=== PATIENT | male | born 1985 | race Caucasian/White ===

== ENCOUNTER 2020-10-22 15:21 | Emergency (ER) | payer OTHER ==
[~2020-10-22] VITALS: Ht 177.8 cm; Wt 74.8 kg
--- NOTE | 2020-10-22 16:00 | NUR ---
Placed in room 6 . Placed on alarm security or surveillance monitor, blood pressure machine and pulse oximeter. To gown for exam. Side rails up. Report received from TEDDY Tabares.
[2020-10-22 16:01] VITALS: BP_SYST 141
--- NOTE | 2020-10-22 16:07 | NUR ---
BIB FROM HOME FOR DIZZINESS FOR 24 HOURS. DENIES FEVER/CHILLS/CP/SOB
--- NOTE | 2020-10-22 16:15 | NUR ---
ER DR. MELGAR AT THE BEDSIDE EVALUATING PT
[2020-10-22] MEDS ORDERED: MECLIZINE HCL 25 MG TABLET (ANITVERT) PO ONE (16:30)
--- NOTE | 2020-10-22 17:00 | NUR ---
PT ABLE TO AMBULATE [place]AM[place] AND FEELS RELIEF FROM DIZZINESS AFTER MEDICATION
[2020-10-22 17:15] VITALS: BP_SYST 137
--- NOTE | 2020-10-22 17:15 | NUR ---
Patient given written and verbal discharge instructions and verbalizes understanding. ER MD discussed with patient the results and treatment provided. Patient in stable condition. ID arm band removed. Rx of MECLIZINE given. Patient educated on pain management and to follow up with PMD. Pain Scale 0/10. Opportunity for questions provided and answered. Medication side effect fact sheet provided.
== END 2020-10-22 17:15 | disposition home or self-care (01) ==
LOC: SED 15:21
DX: R42 Dizziness and giddiness (principal)
CPT/HCPCS: 93005; 99283; J8597

== ENCOUNTER 2023-04-04 15:22 | Emergency (ER) | payer OTHER ==
[~2023-04-04] VITALS: Ht 177.8 cm; Wt 74.8 kg
[2023-04-04 15:25] VITALS: BP_SYST 127
--- NOTE | 2023-04-04 15:30 | NUR ---
Patient triaged and placed in waiting room. VSS and patient appears in no acute distress at this time. Accompanied by FAMILY, awaiting available bed, and MD notified of need for MSE.
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
--- NOTE | 2023-04-04 15:55 | NUR ---
DR HOSKINS OUT TO TRIAGE ROOM FOR EVALUATION
[2023-04-04] MEDS ORDERED: IBUPROFEN 800 MG TABLET PO ONE (16:00)
[2023-04-04] MEDS ORDERED: IBUP-1971 PO (17:31)
[2023-04-04] MEDS ORDERED: DICL20GE TP (17:31)
--- NOTE | 2023-04-04 17:47 | NUR ---
Patient given written and verbal discharge instructions and verbalizes understanding. ER MD discussed with patient the results and treatment provided. Patient in stable condition. ID arm band removed. Rx of DICLFENAC, IBUPROFEN given. Patient educated on pain management and to follow up with PMD. Pain Scale 0/10. Opportunity for questions provided and answered. Medication side effect fact sheet provided.
== END 2023-04-04 17:47 | disposition home or self-care (01) ==
LOC: SED 15:22
DX: S16.1XXA Strain of muscle, fascia and tendon at neck level, initial encounter (principal); S39.013A Strain of muscle, fascia and tendon of pelvis, initial encounter; Z79.899 Other long term (current) drug therapy; V89.2XXA Person injured in unspecified motor-vehicle accident, traffic, initial encounter; Y93.89 Activity, other specified; Y92.89 Other specified places as the place of occurrence of the external cause; Y99.8 Other external cause status
CPT/HCPCS: 72040-TC; 72100-TC; 73030; 96372; 99284

== ENCOUNTER 2023-04-11 14:08 | Emergency (ER) | payer OTHER ==
[~2023-04-11] VITALS: Ht 177.8 cm; Wt 77.1 kg
[~2023-04-11 14:08] MED LIST: DICL20GE TP; IBUP-1971 PO
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
[2023-04-11 14:24] VITALS: BP_SYST 140
[2023-04-11] MEDS ORDERED: MORPHINE 4 MG INJ. 4 MG/ML VIAL IM ONE (14:30)
--- NOTE | 2023-04-11 14:36 | NUR ---
Pt bib self from home. chief complaint Neck pain with rigidity. Pt unable to turn neck side to side without discomfort. Pain to neck 10/10. Skin intact, aaox3, pt is afebrile denies SOB, pt is resting position with minimal movement.
[2023-04-11] MEDS ORDERED: NAPR-1172 PO (16:26)
--- NOTE | 2023-04-11 16:32 | NUR ---
Patient given written and verbal discharge instructions and verbalizes understanding. ER MD discussed with patient the results and treatment provided. Patient in stable condition. ID arm band removed. Rx of Napoxen given. Patient educated on pain management and to follow up with PMD. Opportunity for questions provided and answered. Medication side effect fact sheet provided. picked up pt for ride home
[2023-04-11 17:14] VITALS: BP_SYST 148
== END 2023-04-11 16:32 | disposition home or self-care (01) ==
LOC: SED 14:08
DX: S13.4XXA Sprain of ligaments of cervical spine, initial encounter (principal); S09.90XA Unspecified injury of head, initial encounter; Z79.899 Other long term (current) drug therapy; V89.2XXA Person injured in unspecified motor-vehicle accident, traffic, initial encounter; Y93.89 Activity, other specified; Y92.89 Other specified places as the place of occurrence of the external cause; Y99.8 Other external cause status
CPT/HCPCS: 99285; 70450; 76376; 96372; J2270

== ENCOUNTER 2024-03-30 15:15 | Emergency (ER) | payer OTHER ==
[~2024-03-30] VITALS: Ht 177.8 cm; Wt 74.8 kg
[~2024-03-30 15:15] MED LIST changes: +NAPR-1172 PO
[2024-03-30 15:53] VITALS: BP_SYST 142; PULSE 82; RESP 18; TEMP 98.3; O2SAT 99
[2024-03-30 20:08] LABS: BILIRUBIN,URINE NEGATIVE (NEGATIVE); BLOOD, URINE NEGATIVE (NEGATIVE); CLARITY/URINE CLEAR (CLEAR); COLOR,URINE YELLOW (YELLOW); GLUCOSE,URINE NEGATIVE (NEGATIVE); KETONES,URINE NEGATIVE (NEGATIVE); LEUKOCYTE ESTERASE ,URINE NEGATIVE (NEGATIVE); NITRITE, URINE NEGATIVE (NEGATIVE); PH,URINE 6.5 (5.0-8.0); PROTEIN URINE NEGATIVE (NEGATIVE); UROBILINOGEN,URINE 0.2 (0.2-1.0)
[2024-03-30] MEDS: ONDANSETRON HCL 4 MG/2 ML VIAL IVP ONE (21:07)
[2024-03-30] MEDS: MORPHINE 4 MG INJ. 4 MG/ML VIAL IVP ONE (21:09)
[2024-03-30] MEDS: KETOROLAC TROMETHAMINE 30 MG VIAL IVP ONE (21:12)
[2024-03-30] MEDS: METHYLPREDNISOLONE SOD SUCC 40 MG/ML VIAL IVP ONE (21:16)
[2024-03-30] MEDS: NS 500 ML IV ONE (21:22)
[2024-03-31] MEDS: DIAZEPAM 5 MG TABLET (VALIUM) PO ONE (01:02)
[2024-03-31 01:57] VITALS: BP_SYST 131; PULSE 87; RESP 18; TEMP 98.1; O2SAT 97
== END 2024-03-31 01:57 | disposition home or self-care (01) ==
LOC: SED 15:15
DX: M54.50 Low back pain, unspecified (principal); M25.552 Pain in left hip; Z90.49 Acquired absence of other specified parts of digestive tract; Z79.899 Other long term (current) drug therapy
CPT/HCPCS: 81001; 36415; 72131; 99285; 96374; 96375; 87491; J1885; J1030; J2405; J2270; 81003